=== PATIENT | male | born 1945 | race Caucasian/White ===

== ENCOUNTER 2022-11-06 07:53 | Emergency (ER) | payer OTHER, MEDICARE ==
[~2022-11-06] VITALS: Ht 180.3 cm; Wt 81.6 kg
[2022-11-06 08:03] VITALS: BP_SYST 125
[2022-11-06 08:34] LABS: BASOPHILS % (AUTO) 0.3 % (0.0-2.0); EOSINOPHILS % (AUTO) 0.2 % (0.0-4.0); HEMATOCRIT 43.3 % (36-54); HEMOGLOBIN 15.1 g/dL (14.0-18.0); LYMPHOCYTES # (AUTO) 0.7 K/uL (1.0-5.5); LYMPHOCYTES % (AUTO) 7.2 % (20.5-51.5); MEAN CORPUSCULAR HEMOGLOBIN 36 pg (27-31); MEAN CORPUSCULAR HGB CONC 35 % (32-36); MEAN CORPUSCULAR VOLUME 102 fL (79.0-98.0); MONOCYTES # (AUTO) 1.3 K/uL (0.0-1.0); MONOCYTES % (AUTO) 14.5 % (1.7-9.3); NEUTROPHILS # (AUTO) 7.1 K/uL (1.8-7.7); NEUTROPHILS % (AUTO) 77.8 % (40.0-70.0); PLATELET COUNT (AUTO) 211 K/uL (130-430); RED BLOOD CELL COUNT(AUTO) 4.26 MIL/uL (4.2-6.2); RED CELL DISTRIBUTION WIDTH 12.8 % (9.0-15.0); WHITE BLOOD COUNT (AUTO) 9.1 K/uL (4.8-10.8)
[2022-11-06 08:55] LABS: ANION GAP 7 (5-15); CALCIUM 8.5 mg/dL (8.4-11.0); CHLORIDE 105 mmol/L (98-107); CREATININE 1.74 mg/dL (0.55-1.30); GLUCOSE 157 mg/dL (70-99); UREA NITROGEN, BLOOD 20 mg/dL (8-21)
[2022-11-06 09:07] LABS: ALANINE AMINOTRANSFERASE 20 U/L (12-78); ALBUMIN 3.6 g/dL (3.4-4.8); ASPARTATE AMINOTRANSFERASE 17 U/L (10-37); TOTAL BILIRUBIN 1.1 mg/dL (0.0-1.0)
--- NOTE | 2022-11-06 09:30 | NUR ---
RECEIVED PT FROM SHAWANDA DICK. PT ARIE CRUZ FOR C/O A SYNCOPE EPISODE. PT STATES HE FEELS DEHYDRATED AND HASN'T EATEN MUCH. PT IS AAOX4, PERRL. NORMAL S1S2 NOTED, EKG PENDING. DENIES N/V. HAS C/O CONSTIPATION. SKIN WARM, INTACT, NO EDEMA. DENIES PAIN. SIDERAILS UP X2. AT BEDSIDE.
--- NOTE | 2022-11-06 09:35 | NUR ---
DR. HIDALGO AT BEDSIDE TO ASSESS PT.
--- NOTE | 2022-11-06 10:05 | NUR ---
CT SCAN AND CXR COMPLETED.
--- NOTE | 2022-11-06 11:00 | NUR ---
CT SCAN TO ABDOMEN COMPLETED.
--- NOTE | 2022-11-06 11:30 | NUR ---
DR. HIDALGO AT BEDSIDE TO DISCUSS POC.
[2022-11-06] MEDS ORDERED: AMOX-423 PO (11:34)
[2022-11-06] MEDS ORDERED: IBUP-1971 PO (11:34)
[2022-11-06 11:48] VITALS: BP_SYST 128
--- NOTE | 2022-11-06 11:52 | NUR ---
Patient given written and verbal discharge instructions and verbalizes understanding. ER MD discussed with patient the results and treatment provided. Patient in stable condition. ID arm band removed. Rx of IBUPROPHEN, NORCO, OMEPRAZOLE given. Patient educated on pain management and to follow up with PMD. Pain Scale 0/10. Opportunity for questions provided and answered. Medication side effect fact sheet provided.
== END 2022-11-06 11:52 | disposition home or self-care (01) ==
LOC: SED 07:53
DX: R55 Syncope and collapse (principal); R10.30 Lower abdominal pain, unspecified
CPT/HCPCS: 36415; 70450-TC; 71045; 76376; 80053; 82550; 82962; 83605; 84484; 85025; 93005; 99285